=== PATIENT | female | born 1995 | race Caucasian/White ===

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

== ENCOUNTER 2017-05-25 15:29 | Emergency (ER) | payer BC ==
[~2017-05-25] VITALS: Ht 162.6 cm; Wt 68.6 kg
[2017-05-25 15:47] VITALS: TEMP 36.6; Ht 162.6 cm; Wt 68.6 kg
[2017-05-25 16:28] LABS: URINE APPEARANCE CLEAR (CLEAR); URINE BILIRUBIN NEG (NEG); URINE COLOR YELLOW; URINE NITRITE NEG (NEG); URINE PH 7.5 (4.5-7.5); URINE SPECIFIC GRAVITY 1.017 (1.000-1.030); UROBILINOGEN NEG (NEG); ZZUR CULT IF INDIC CLEAN CATCH NO
[2017-05-25 16:43] LABS: MANUAL MICROSCOPIC REQUIRED? NO; REVIEW REQ? NO
--- NOTE | 2017-05-25 16:48 | DIAGNOSTIC IMAGING REPORT ---
CHEST ONE VIEW PORTABLE CLINICAL HISTORY: Altered mental status. Weakness. COMPARISON STUDY: 04/23/2016 FINDINGS: The cardiac and mediastinal contours are normal. There is no evidence of focal pulmonary consolidation. There is no evidence of failure. No pleural effusions are visualized.[ IMPRESSION: No active disease in the chest. Electronically signed by: Rey Coyle M.D. 05/25/2017 4:47 PM Dictated Date/Time: 05/25/2017 4:44 PM
[2017-05-25] MEDS ORDERED: VENL150C56 PO (17:01)
[2017-05-25] MEDS ORDERED: CLON0.5T3 PO (17:01)
[2017-05-25] MEDS ORDERED: EFF/375 PO (17:01)
[2017-05-25 17:06] LABS: BASO % 0.3 %; BASO ABS # 0.02 K/uL (0-0.2); COMPLETE YES; HEMATOCRIT 42.2 % (37-47); IG% 0.1 %; LYMPH % 39.4 %; LYMPH ABS # 2.94 K/uL (1.2-3.4); MEAN CELL VOLUME 84.2 fL (80-100); MEAN CORPUSCULAR HEMOGLOBIN 27.3 pg (25-34); MEAN CORPUSCULAR HGB CONC 32.5 g/dl (32-36); MEAN PLATELET VOLUME 9.3 fL (7.4-10.4); NEUT % 53.2 %; PLATELET COUNT 214 K/uL (130-400); RED BLOOD COUNT 5.01 M/uL (4.2-5.4); WHITE BLOOD COUNT 7.46 K/uL (4.8-10.8)
[2017-05-25 17:07] LABS: PREG INTERNAL NEGATIVE QC NEG CLEAR BACKGROUND; PREG INTERNAL POSITIVE QC POS CONTROL LINE
[2017-05-25 17:10] LABS: BENZODIAZEPINE, URINE NEG (NEG); COCAINE,URINE NEG (NEG); PHENCYCLIDINE, URINE NEG (NEG)
--- NOTE | 2017-05-25 17:16 | DIAGNOSTIC IMAGING REPORT ---
CT SCAN OF THE BRAIN WITHOUT IV CONTRAST CLINICAL HISTORY: Headache and lethargy of 3 weeks' duration. COMPARISON STUDY: No priors. TECHNIQUE: Unenhanced axial CT scan of the brain is performed from the vertex to the skull base. A dose lowering technique was utilized adhering to the principles of ALARA. CT DOSE: 537.48 mGy.cm FINDINGS: Brain parenchyma: The brain parenchyma is normal in appearance. There is no hemorrhage, mass effect, or evidence of acute territorial ischemia by CT criteria. Goodman-white matter is preserved. No extra-axial fluid collection is seen. Ventricles, sulci, cisterns: Normal in configuration. Intracranial vasculature: The visualized intracranial vasculature at the skull base is normal in appearance. Calvarium: Unremarkable. Sinuses and mastoids: The visualized paranasal sinuses are clear. The mastoid air cells are well pneumatized. Orbits: The bony orbits are grossly intact. IMPRESSION: No acute intracranial abnormality. Electronically signed by: Talha Leyva M.D. 05/25/2017 5:15 PM Dictated Date/Time: 05/25/2017 5:14 PM
[2017-05-25 17:23] LABS: ALT/SGPT 18 U/L (12-78); BLOOD UREA NITROGEN 10 mg/dl (7-18); BUN/CREATININE RATIO 14.1 (10-20); CALCIUM 8.6 mg/dl (8.5-10.1); CARBON DIOXIDE 26 mmol/L (21-32); CHLORIDE 108 mmol/L (98-107); CREATININE 0.73 mg/dl (0.60-1.20); GLUCOSE 82 mg/dl (70-99); MAGNESIUM 1.9 mg/dl (1.8-2.4); POTASSIUM 3.7 mmol/L (3.5-5.1); SODIUM 140 mmol/L (136-145)
[2017-05-25 17:34] LABS: ALKALINE PHOSPHATASE 64 U/L (45-117); AST/SGOT 17 U/L (15-37)
--- NOTE | 2017-05-25 18:52 | EMERGENCY ROOM VISIT NOTE ---
History Report prepared by Nehal: Clinton Thomas Under the Supervision of: Dr. Talha Parham M.D. First contact with patient: 16:01 Chief Complaint: LETHARGIC Stated Complaint: SLEEPING ALL DAY, TIRED Nursing Triage Summary: pt reports I feel tired all the time , I will sleep all day and am missing my classes. I have a hx of depression I am taking my meds pt denies SI or HI . pt reports has had a AIKEN everyday for the last 3 weeks. mother want pt pt be " checked out" History of Present Illness The patient is a 21 year old female who presents to the Emergency Room with complaints of constant lethargy that began three weeks ago. The patient states that she has been sleeping frequently lately and missing her classes. She reports she usually gets 8 hours of sleep and is fine for the day. She states that lately, she has been lethargic, which is not usual for her. The patient reports that she has been getting enough sleep at night and has been taking naps after classes that would last for 3 hours. She states that today she did not get up until 1500 and missed all of her classes. She reports that she has been experiencing migraines at least once a day. The patient states that she thought the headaches may be due to her not wearing her prescribed glasses or contact lenses. She reports that she tried to use her glasses every day recently , but denies any relief of her headache. The patient admits to a history of depression, which she takes medication for. She reports that she has been on this medication since March and takes it at night to help her sleep. She admits that she has also been taking control pills daily. The patient reports that she has been eating and drinking normally, but admits her weight has been fluctuating. She denies any fever, sore throat, cough, vomiting, , urinary symptoms, having this issue in the past, a history of diabetes or thyroid problems, drug or alcohol use, suicidal ideation, and homicidal ideation. Source of History: patient Onset: 3 weeks ago Position: other (global) Quality: other (global) Timing: constant Associated Symptoms: + headache, No fevers, No sorethroat, No cough, No vomiting, No urinary symptoms Review of Systems See HPI for pertinent positives & negatives. A total of 10 systems reviewed and were otherwise negative. Past Medical & Surgical Medical Problems: (1) Asthma (2) Bronchitis Family History Patient reports no known family medical history. Social History Smoking Status: Never Smoker Alcohol Use: occasionally Drug Use: none Marital Status: single Housing Status: lives with roommate Occupation Status: [employer] student Current/Historical Medications Scheduled Control Pills ( Control Pills), 1 TAB PO DAILY Venlafaxine Hcl (Effexor), 37.5 MG PO DAILY Venlafaxine Hcl (Effexor Extended Rel), 150 MG PO DAILY Scheduled PRN Clonazepam (Klonopin), 0.5 MG PO PRN PRN for Anxiety Allergies Coded Allergies: Penicillins (Verified Allergy, Unknown, RASH, 05/25/17) Physical Exam Vital Signs Date Time Temp Pulse Resp B/P (MAP) Pulse Ox O2 Delivery O2 Flow Rate FiO2 05/25/17 21:10 74 20 130/80 99 Room Air 05/25/17 19:29 82 18 143/83 99 Room Air 05/25/17 17:42 84 16 126/77 100 Room Air 05/25/17 15:47 36.6 98 20 129/83 99 Room Air Physical Exam GENERAL: Patient is in no acute distress. HEENT: No acute trauma, normocephalic atraumatic, mucous membranes moist, no nasal congestion, no scleral icterus. No throat erythema or exudate. NECK: No stridor, no adenopathy, no meningismus, trachea is midline. LUNGS: Clear to auscultation bilaterally, no wheeze, no rhonchi, breath sounds equal. HEART: Without murmurs gallops or rubs, regular rate and rhythm. ABDOMEN: Soft, nontender, bowel sounds positive, no hernias, no peritonitis. EXTREMITIES: No cyanosis or edema, full range of motion of all the joints without pain or difficulty, no signs for acute trauma. NEUROLOGIC: Oriented x 3, no acute motor or sensory deficits, no focal weakness. SKIN: No rash, no jaundice, no diaphoresis. Psyc: Denies SI, voluntary, cooperative. Medical Decision & Procedures ER Provider Diagnostic Interpretation: Radiology results as stated below per my review and radiologist interpretation: CHEST ONE VIEW PORTABLE CLINICAL HISTORY: Altered mental status. Weakness. COMPARISON STUDY: 04/23/2016 FINDINGS: The cardiac and mediastinal contours are normal. There is no evidence of focal pulmonary consolidation. There is no evidence of failure. No pleural effusions are visualized.[ IMPRESSION: No active disease in the chest. Electronically signed by: Rey Coyle M.D. 05/25/2017 4:47 PM Dictated Date/Time: 05/25/2017 4:[address] SCAN OF THE BRAIN WITHOUT IV CONTRAST CLINICAL HISTORY: Headache and lethargy of 3 weeks' duration. COMPARISON STUDY: No priors. TECHNIQUE: Unenhanced axial CT scan of the brain is performed from the vertex to the skull base. A dose lowering technique was utilized adhering to the principles of ALARA. CT DOSE: 537.48 mGy.cm FINDINGS: Brain parenchyma: The brain parenchyma is normal in appearance. There is no hemorrhage, mass effect, or evidence of acute territorial ischemia by CT criteria. Goodman-white matter is preserved. No extra-axial fluid collection is seen. Ventricles, sulci, cisterns: Normal in configuration. Intracranial vasculature: The visualized intracranial vasculature at the skull base is normal in appearance. Calvarium: Unremarkable. Sinuses and mastoids: The visualized paranasal sinuses are clear. The mastoid air cells are well pneumatized. Orbits: The bony orbits are grossly intact. IMPRESSION: No acute intracranial abnormality. Electronically signed by: Talha Leyva M.D. 05/25/2017 5:15 PM Dictated Date/Time: 05/25/2017 5:14 PM Laboratory Results 05/25/17 16:30 Red Blood Count 5.01, Mean Corpuscular Volume 84.2, Mean Corpuscular Hemoglobin 27.3, Mean Corpuscular Hemoglobin Concent 32.5, Mean Platelet Volume 9.3, Neutrophils (%) (Auto) 53.2, Lymphocytes (%) (Auto) 39.4, Monocytes (%) (Auto) 5.0, Eosinophils (%) (Auto) 2.0, Basophils (%) (Auto) 0.3, Neutrophils # (Auto) 3.97, Lymphocytes # (Auto) 2.94, Monocytes # (Auto) 0.37, Eosinophils # (Auto) 0.15, Basophils # (Auto) 0.02 05/25/17 16:30 Test 05/25/17 15:59 05/25/17 16:30 Urine Color YELLOW Urine Appearance CLEAR (CLEAR) Urine pH 7.5 (4.5-7.5) Urine Specific [place] 1.017 (1.000-1.030) Urine Protein NEG (NEG) Urine Glucose (UA) NEG (NEG) Urine Ketones NEG (NEG) Urine Occult Blood NEG (NEG) Urine Nitrite NEG (NEG) Urine Bilirubin NEG (NEG) Urine Urobilinogen NEG (NEG) Urine Leukocyte Esterase NEG (NEG) Urine Opiates Screen NEG (NEG) Urine Methadone, Qualitative NEG (NEG) Urine Barbiturates NEG (NEG) Urine Phencyclidine (PCP) Level NEG (NEG) Ur Amphetamine/Methamphetamine NEG (NEG) MDMA (Ecstasy) Screen NEG (NEG) Urine Benzodiazepines Screen NEG (NEG) Urine Cocaine Metabolite NEG (NEG) Urine Marijuana (THC) POS (NEG) White Blood Count 7.46 K/uL (4.8-10.8) Red Blood Count 5.01 M/uL (4.2-5.4) Hemoglobin 13.7 g/dL (12.0-16.0) Hematocrit 42.2 % (37-47) Mean Corpuscular Volume 84.2 fL (80-100) Mean Corpuscular Hemoglobin 27.3 pg (25-34) Mean Corpuscular Hemoglobin Concent 32.5 g/dl (32-36) Platelet Count 214 K/uL (130-400) Mean Platelet Volume 9.3 fL (7.4-10.4) Neutrophils (%) (Auto) 53.2 % Lymphocytes (%) (Auto) 39.4 % Monocytes (%) (Auto) 5.0 % Eosinophils (%) (Auto) 2.0 % Basophils (%) (Auto) 0.3 % Neutrophils # (Auto) 3.97 K/uL (1.4-6.5) Lymphocytes # (Auto) 2.94 K/uL (1.2-3.4) Monocytes # (Auto) 0.37 K/uL (0.11-0.59) Eosinophils # (Auto) 0.15 K/uL (0-0.5) Basophils # (Auto) 0.02 K/uL (0-0.2) RDW Standard Deviation 45.6 fL (36.4-46.3) RDW Coefficient of Variation 14.7 % (11.5-14.5) Immature Granulocyte % (Auto) 0.1 % Immature Granulocyte # (Auto) 0.01 K/uL (0.00-0.02) Anion Gap 6.0 mmol/L (3-11) Est Creatinine Clear Calc Drug Dose 118.0 ml/min Estimated GFR () 138.4 Estimated GFR (Non- 119.4 BUN/Creatinine Ratio 14.1 (10-20) Calcium Level 8.6 mg/dl (8.5-10.1) Magnesium Level 1.9 mg/dl (1.8-2.4) Total Bilirubin 0.6 mg/dl (0.2-1) Aspartate Amino Transf (AST/SGOT) 17 U/L (15-37) Alanine Aminotransferase (ALT/SGPT) 18 U/L (12-78) Alkaline Phosphatase 64 U/L (45-117) Ammonia 16.2 umol/L (11-32) Total Creatine Kinase 83 U/L (26-192) Troponin I < 0.015 ng/ml (0-0.045) Total Protein 7.0 gm/dl (6.4-8.2) Albumin 3.5 gm/dl (3.4-5.0) Globulin 3.5 gm/dl (2.5-4.0) Albumin/Globulin Ratio 1.0 (0.9-2) Thyroid Stimulating Hormone (TSH) 3.000 uIu/ml (0.300-4.500) Human Chorionic Gonadotropin, Qual NEG (NEG) Monoscreen NEG (NEG) Laboratory results reviewed by me. ECG Indication: other (lethargy) Rate (beats per minute): 75 Rhythm: sinus with SA Findings: no acute ischemic change, no ectopy ED Course 1602: The patient was evaluated in room B11B. A complete history and physical exam was performed. 0: I discussed the patient's case with the case hardener. The case hardener talked to the patient and she reports that she is profoundly depressed and would like to come into the hospital for treatment. 1923: I reevaluated the patient and she is doing fine. 2104: Reevaluated the patient. She now wishes to be discharged home. Discussed results and discharge instructions: She verbalized understanding and agreement. The patient is ready for discharge. Medical Decision The patient is a 21 year old female who presents to the ED with complaints of constant lethargy starting three weeks ago. Differential diagnoses considered include depression, thyroid disorder, viral illness, electrolyte imbalance, UTI , , anemia, intracranial mass or bleed. There is no leukocytosis or concerning anemia. No significant electrolyte abnormality, kidney failure, hepatitis. testing is negative. Monospot testing is negative. Ammonia is not elevated. Urinalysis does not show infection. Urine tox shows marijuana only. The patient appears to be in a euthyroid state. Chest x-ray does not show pneumonia or CHF. EKG shows a sinus rhythm, no acute ischemia. Cardiac enzyme testing 1 does not suggest acute cardiac injury. Brain CT shows no acute bleed or mass effect. On exam, the patient had no focal neurologic deficits. She was awake and alert. She does not appear toxic. She was not febrile. The patient's medical workup is unrevealing. I had her seen by the psychiatry team. They spent a significant amount of time talking with the patient and talking with her mother. The patient initially thought maybe she would stay in the hospital for depression but then changed her mind. She denied being suicidal or homicidal. She felt safe with discharge back to school. The patient's mother was comfortable with discharge. Outpatient follow-up is being arranged. The patient was encouraged to return here for any suicidal ideation or worsening symptoms. She was discharged home. I do think her depression is responsible for her fatigue and the presentation today. Medication Reconcilliation Current Medication List: was personally reviewed by me Blood Pressure Screening Patient's blood pressure: Normal blood pressure Impression Primary Impression: Fatigue Additional Impression: Depression Scribe Attestation The scribe's documentation has been prepared under my direction and personally reviewed by me in its entirety. I confirm that the note above accurately reflects all work, treatment, procedures, and medical decision making performed by me. Departure Information Dispostion Home / Self-Care Referrals No Doctor, Assigned (PCP) Forms HOME CARE DOCUMENTATION FORM, IMPORTANT VISIT INFORMATION, WORK / SCHOOL INSTRUCTIONS Patient Instructions My [facility] Additional Instructions return if feeling worse or if feeling suicidal try taking your depression med in the morning follow as an outpatient as suggested all lab testing and imaging was ok today Problem Qualifiers
[2017-05-25 21:10] VITALS: BP 130/80; PULSE 74; O2SAT 99
== END 2017-05-25 21:17 | disposition home or self-care (01) ==
LOC: C.EDB 15:30 → C.EDA 21:17
DX: R53.83 Other fatigue (principal); F32.9 Major depressive disorder, single episode, unspecified; J45.909 Unspecified asthma, uncomplicated; Z88.0 Allergy status to penicillin

== ENCOUNTER 2017-05-26 22:44 | Inpatient (IN) | payer BC, OTHER ==
[~2017-05-26] VITALS: Ht 162.6 cm; Wt 66.6 kg
[~2017-05-26 22:44] MED LIST changes: +CLON0.5T3 PO; +EFF/375 PO; +VENL150C56 PO
[2017-05-27] MEDS ORDERED: NURSING VERBAL MED ORDER ONE (02:30)
[2017-05-27 02:36] VITALS: O2SAT 98
[2017-05-27 02:39] LABS: BENZODIAZEPINE, URINE NEG (NEG); COCAINE,URINE NEG (NEG); PHENCYCLIDINE, URINE NEG (NEG)
[2017-05-27] MEDS ORDERED: ALUMINUM/MAGNESIUM SUSP 30 ML UDC PO PRN (02:45)
[2017-05-27] MEDS ORDERED: MAGNESIUM HYDROXIDE SUSP 30 ML UDC PO PRN (02:45)
[2017-05-27] MEDS ORDERED: ACETAMINOPHEN 325 MG TAB PO PRN (02:45)
[2017-05-27] MEDS ORDERED: SODIUM CHLORIDE 0.65% NA SOLN 45 ML (OCEAN) PRN (02:45)
[2017-05-27] MEDS ORDERED: BISMUTH SUBSALICYLATE PER ML OMNICELL CHARGE PO PRN (02:45)
[2017-05-27] MEDS: hydrOXYzine HCL 25 MG TAB PO PRN (03:11)
[2017-05-27 05:17] VITALS: BP 126/72; TEMP 36.8; Ht 162.6 cm; Wt 66.6 kg
[2017-05-27] MEDS ORDERED: EFFSR375 PO (06:49)
[2017-05-27 07:12] VITALS: BP 119/75; PULSE 91; TEMP 37.1
--- NOTE | 2017-05-27 07:40 | EMERGENCY ROOM VISIT NOTE ---
History Report prepared by Nehal: Ailin Oleary Under the Supervision of: Dr. Gini Nunez D.O. First contact with patient: 23:04 Chief Complaint: MENTAL HEALTH EVALUATION Stated Complaint: DEPRESSION History of Present Illness The patient is a 21 year old female who presents to the Emergency Room for a mental health evaluation. The patient states that she was here yesterday for a mental health evaluation. She reports that she didn't want to stay in patient at the time. She states that today she tried to go through her normal day, but struggled. She reports that she went to some of her classes this morning, but slept through some as well. She states that she slept until 5 today and has barley eaten or drank anything today. She states that she forced herself to eat a popsicle and vomited. She reports that she tried to eat rice and it stayed down. The patient reports that she has only drank one bottle of Gatorade this morning and had a little water throughout the day. She reports that she came back because she wants to get better. The patient complains of lack of motivation. The patient notes that she sees [facility] regularly and that she has never been an inpatient before. She denies any known health problems, drug use, alcohol use, wanting to hurt herself, wanting to hurt others, and missing her depression medication. She notes that she has had suicidal thoughts in the past , but nothing recently. She notes that her LNMP was a week ago. Source of History: patient Onset: yesterday Position: other (global) Quality: other (global) Timing: other (episode) Associated Symptoms: + vomiting Note: The patient complains of lack of motivation. the patient denies wanting to hurt herself, wanting to hurt others, and missing her depression medication. Review of Systems See HPI for pertinent positives & negatives. A total of 10 systems reviewed and were otherwise negative. Past Medical & Surgical Medical Problems: (1) Asthma (2) Bronchitis Family History Patient reports no known family medical history. Social History Smoking Status: Never Smoker Alcohol Use: occasionally Drug Use: none Marital Status: single Housing Status: lives with roommate Occupation Status: [employer] student Current/Historical Medications Scheduled Control Pills ( Control Pills), 1 TAB PO DAILY Venlafaxine HCl (Venlafaxine HCl ER), 37.5 MG PO DAILY Venlafaxine Hcl (Effexor Extended Rel), 150 MG PO DAILY Scheduled PRN Clonazepam (Klonopin), 0.5 MG PO PRN PRN for Anxiety Allergies Coded Allergies: Penicillins (Verified Allergy, Unknown, RASH, 05/25/17) Physical Exam Vital Signs Date Time Temp Pulse Resp B/P (MAP) Pulse Ox O2 Delivery O2 Flow Rate FiO2 05/26/17 22:47 36.8 79 20 126/85 97 Room Air Physical Exam HEENT: Head - normocephalic and atraumatic Pupils are equal, round, and reactive to light. Extraocular eye muscles are intact, and sclera are anicteric. Nose - moist nasal mucosa without discharge. Mouth - moist buccal mucosa. Oropharynx is nonerythematous and there is no tonsillar exudate or edema noted. Neck: Supple; no JVD, nuchal rigidity, cervical lymphadenopathy, or auscultated bruits. Heart: Regular rate and rhythm. There is a normal S1 and S2 with no murmurs, clicks, or gallops appreciated. Lungs: Clear to auscultation bilaterally with no wheezes, rales, or rhonchi. Abdomen: Soft, completely nontender, nondistended, with good bowel sounds. There are no palpable pulsatile masses or hepatosplenomegaly. There is no guarding, rigidity, or rebound noted. Extremities: No evidence of cyanosis, clubbing, or edema. There are easily palpable peripheral pulses. Skin: warm and dry with good turgor and no rashes. Psych: Extremely flat affect. Appears depressed. Denies suicidal or homicidal ideations. Medical Decision & Procedures Laboratory Results Test 05/26/17 23:00 Urine Opiates Screen NEG (NEG) Urine Methadone, Qualitative NEG (NEG) Urine Barbiturates NEG (NEG) Urine Phencyclidine (PCP) Level NEG (NEG) Ur Amphetamine/Methamphetamine NEG (NEG) MDMA (Ecstasy) Screen NEG (NEG) Urine Benzodiazepines Screen NEG (NEG) Urine Cocaine Metabolite NEG (NEG) Urine Marijuana (THC) POS (NEG) Laboratory results per my review. ED Course 2311: Past medical records reviewed. The patient was evaluated in room A7. A complete history and physical exam was performed. I discussed the case with staff from [facility]. He had evaluated the patient yesterday was familiar with her case. The patient is willing to sign herself in voluntarily for inpatient psychiatric care. We did obtain a urine specimen to do a drug screen. This was positive for marijuana. Medical Decision Differential diagnoses include mood disorder, depression, thought disorder, suicidal ideation. LABS: Urine tox screen positive for THC. This is a 21-year-old female patient with a history of depression his had worsening symptoms and is requesting inpatient psychiatric care. Medication Reconcilliation Current Medication List: was personally reviewed by me Blood Pressure Screening Patient's blood pressure: Normal blood pressure Blood pressure disposition: Did not require urgent referral Impression Primary Impression: Depression Scribe Attestation The scribe's documentation has been prepared under my direction and personally reviewed by me in its entirety. I confirm that the note above accurately reflects all work, treatment, procedures, and medical decision making performed by me. Departure Information Dispostion Mental Health Acute Care Referrals No Doctor, Assigned (PCP) Patient Instructions My [facility] Problem Qualifiers Primary Impression: Depression Depression Type: major depressive disorder Major depression recurrence: recurrent Active/Remission status: currently active Major depression episode severity: moderate Qualified Codes: F33.1 - Major depressive disorder, recurrent, moderate
[2017-05-27] MEDS ORDERED: VENLAFAXINE HCL XR 37.5 MG CAPXR PO SCH (09:00)
[2017-05-27] MEDS ORDERED: VENLAFAXINE HCL XR 75 MG CAPXR PO ONE (13:07)
--- NOTE | 2017-05-27 13:09 | Psychiatric History & Physical ---
History Date of Service May 27, 2017. Identifying Data Trena Rowe is a 21-year-old [employer] student who presented to the emergency department 2 nights in a row with reports of headache, extreme fatigue and inability to function. She is admitted to our unit voluntarily. Information is gathered from the patient and considered to be reliable. Chief Complaint Depression and anxiety History of Present Illness The patient is a 21-year-old woman attending [employer]. She reports that she has been depressed since the age of 13 or 14 and has also had chronic anxiety. She remembers sitting in her room listening to music and crying as a child. She was diagnosed with depression until she saw Lexus Bazanley at [facility] in December of this year. She was started on Remeron which made her hungry and so this was discontinued in favor of a trial of Lexapro. She experienced an increase in suicidal ideation and so this was discontinued in favor of a trial of Effexor which has been increasing in dose since March. When she got to about 150 mg she noticed that she was extremely tired and this is continued. She is now sleeping any time she is not in class including 11-12 hours at night. It is interfering with her ability to participate in her schooling and her extracurricular activities. She denies having acute suicidal ideation but over the years has had passive thoughts of when she has been under stress. She is currently a [employer] major and is also participating in [employer]. She also has one class that involves setting up a community activity and hers is planned to be executed next week. All of this has placed an additional level of stress on her. Over the last 3 weeks her depression and anxiety have been worsening although she has not been able to see her providers having had to cancel twice. Today the patient continues to say that her mood is depressed and anxious. She denies acute suicidal ideation. She indicates her focus and concentration are okay but finds it tiring by the end of the day to focus on her schoolwork. As I said she sleeps to excess. Her appetite is been down and has been having some nausea. She is an anxious person dating back at least to high school. She reports racing anxious thoughts with panic attacks that include symptoms of shortness of breath and occur when she is in crowds. She generally avoids parties or anywhere that there are large numbers of people. This has only been this semester and in the setting of her depression. She denies clear OCD symptoms although does have some traits in which she cleans a lot anxious and has to have her bed clothes and sheets in a certain manner. She denies any symptoms that would be congruent with a bipolar disorder. Past Psychiatric History Current OP Treatment: psychiatrist (Lexus SALAZAR), therapist (Cesar at [facility]) Prior OP Treatment: no prior treatment Prior Psych Hospitalizations: none Access to a Gun: No Suicide Attempts: No Past Medication Trials 1. Lexapro-increase suicidal ideation 2. Remeron increase in appetite 3. BuSpar-not helpful- Past Medical/Surgical History History of Concussion/Seizure: No Allergies Allergies: Coded Allergies: Penicillins (Verified Allergy, Unknown, RASH, 05/25/17) Home Medications Scheduled Control Pills ( Control Pills), 1 TAB PO DAILY Venlafaxine HCl (Venlafaxine HCl ER), 37.5 MG PO DAILY Venlafaxine Hcl (Effexor Extended Rel), 150 MG PO DAILY Scheduled PRN Clonazepam (Klonopin), 0.5 MG PO PRN PRN for Anxiety Family History Patient reports no known family medical history. History of Suicide: No History of Substance Abuse: Yes (father) Psychiatric History: No Alcohol Use Alcohol Use In Past 12 Months: No AUDIT Total Score: 1 Smoking Use Smoking Status: Never Smoker Substance History Smokes marijuana about 1 time per week, generally for headaches Personal History Lives in: in an apartment in [place], multiple roommates Childhood: Raised by mother and father until they . She then went to live with mother. She has 1 younger sister. Education: started college (his [employer] major) Relationship History: other (boyfriend of 3 months) Children: none Spiritual Affiliation: none Legal History: none Psychological Trauma History: Denies Hx Traumatic Event Review of Systems Constitutional: malaise Eyes: denies: no symptoms, as stated in HPI, eye pain, tearing, itching, redness, discharge, double vision, visual changes, blurred vision, photophobia, other ENT: denies: no symptoms reported, see HPI, ear pain, ear discharge, loss of hearing, tinnitus, nasal pain, nasal congestion, rhinorrhea, epistaxis, sore throat, stidor, throat swelling, mouth pain, mouth swelling, dental pain, gum swelling, other Cardiovascular: reports: palpitations Respiratory: reports: cough, short of breath (with anxiety) Gastrointestinal: denies no symptoms reported, denies see HPI, denies abdominal pain, denies constipation, denies diarrhea, denies nausea, denies vomiting, denies other Genitourinary - Female: denies: no symptoms, see HPI, rash, amenorrhea, dysmenorrhea, menorrhagia, metrorrhagia, , vaginal bleeding, vaginal itching, vaginal discharge, vulvadynia, other Musculoskeletal: denies no symptoms reported, denies see HPI, denies back pain , denies gout, denies joint pain, denies joint swelling, denies muscle pain, denies muscle stiffness, denies neck pain, denies other Integumentary: denies no symptoms reported, denies see HPI, denies change in color, denies change in hair/nails, denies dryness, denies lesions, denies lumps , denies rash, denies other Neurologic: reports: headache Endocrine: denies: no symptoms, as stated in HPI, cold intolerance, heat intolerance, hair changes, goiter, polydipsia, polyuria, skin changes, other Hematologic / Lymphatic: denies: no symptoms, as stated in HPI, abnormal clotting, adenopathy, anemia, easy bleeding, easy bruising, gums bleeding, petechiae, other Examination Physical Examination Exam performed by Dr. Nunez in the emergency department last evening he has been reviewed and accepted as medical clearance for our unit. Vital Signs Vital Signs Past 12 Hours Date Time Temp Pulse Resp B/P (MAP) Pulse Ox O2 Delivery O2 Flow Rate FiO2 05/27/17 07:12 37.1 91 16 119/75 05/27/17 05:17 36.8 20 126/72 05/27/17 02:36 78 20 126/72 98 Laboratory Results Last 24 Hours Test 05/26/17 23:00 Urine Opiates Screen NEG Urine Methadone, Qualitative NEG Urine Barbiturates NEG Urine Phencyclidine (PCP) Level NEG Ur Amphetamine/Methamphetamine NEG MDMA (Ecstasy) Screen NEG Urine Benzodiazepines Screen NEG Urine Cocaine Metabolite NEG Urine Marijuana (THC) POS Mental Examination During interview pt is: alert and oriented, cooperative Appearance: appropriately dressed, appropriately groomed Eye contact is: good Motor behavior is: steady gait & station, no abnormal motor movements Speech: normal in rate, rhythm & volume Affect: flat Mood is: depressed, anxious Thought process: goal directed Thought content: reality based without delusions Suicidal thought are: present (passive) Homicidal thoughts are: denied Hallucinations: denies auditory, denies visual Cognition: memory grossly intact, attention grossly intact Intelligence estimated to be: average Insight: limited Judgement: limited Impression / Recommendations Impression 21-year-old [employer] student, presented to our ED 2 nights in a row feeling that she could no longer function with the degree of fatigue she was experiencing. She correlates this to an increase in dosage of Effexor to 187.5 mg. She is also under a great deal of stress at school and its difficult to clearly say whether her fatigue is a side effect to medications or symptom of her depression. Nonetheless, she is lost confidence in the Effexor and so we will taper her down to 150 today, 75 mg tomorrow and if no discontinuation symptoms, further reduced to 137.5 mg. At the same time we will start Zoloft 25 mg today increasing to 50 mg tomorrow. Risks, benefits and alternatives were reviewed and accepted including review of black box warnings. We will coordinate with her outpatient providers. She would like to continue in school at this point and so will be in contact with the office of student services as needed. At this time, the patient requires inpatient mental health treatment due to an inability to function outside of a structured environment. Inventory Assets Strengths: Intelligence, willingness to engage in treatment Needs: To avoid substances Risk Factors Assessment : Yes /single/: Yes Higher / Fall in social status: No Access to guns: No Health problems: No Mental Health Diagnoses: Yes Substance use disorders: No Previous attempt: No Previous psychiatric stay: No Hopelessness: No Smoker: No Protective Factors Assessment : No Responsible for young children: No Employed: No Stable relationships: Yes Supportive family: Yes Good rapport with provider: Yes Recommendations (1) Major depressive disorder, recurrent severe without psychotic features 05/27 - Reduce Effexor to 150 mg today and 75 mg tomorrow. If no discontinuation symptoms will continue to taper - Start Zoloft 25 mg today increasing to 50 mg tomorrow - Family meeting with mother who is here from [place] - Every 15 minute checks for safety - Encourage participation in group and individual counseling - Assist the patient to learn and utilize healthy coping strategies - Encourage the patient to be out of bed during the day in order to establish good sleep hygiene - Obtain outpatient records from and coordinate future care with outpatient providers (2) JOANA (generalized anxiety disorder) 05/27 - - Meds as above - Will use Vistaril when necessary for anxiety - Assist the patient to explore concepts of mindfulness, deep breathing and relaxation Has been reviewed with Dr. Nani Dwyer CPT Code Initial Hospital Care: [id number]
[2017-05-27] MEDS ORDERED: SERTRALINE HCL 50 MG TAB PO ONE (13:30)
[2017-05-27] MEDS ORDERED: VENLAFAXINE PO ONE ×2 (13:30)
[2017-05-27] MEDS: [UNRECOGNIZED DRUG - OTHER] SCH (15:44)
[2017-05-28 07:17] VITALS: BP 122/78; PULSE 93; PULSE 97; TEMP 36.8
[2017-05-28] MEDS: [UNRECOGNIZED DRUG - OTHER] SCH ×3 (08:00→16:00)
[2017-05-28] MEDS ORDERED: SERTRALINE HCL 50 MG TAB PO SCH (09:00)
[2017-05-28] MEDS: VENLAFAXINE HCL XR 75 MG CAPXR PO SCH (09:42)
[2017-05-28] MEDS: hydrOXYzine HCL 25 MG TAB PO PRN ×2 (10:59→21:49)
--- NOTE | 2017-05-28 11:53 | Psychiatric Progress Notes ---
Progress Note Date of Service May 28, 2017. Interval History Trena Rwoe is a 21-year-old [employer] student who presented to the emergency department 2 nights in a row with reports of headache, extreme fatigue and inability to function. She is admitted to our unit voluntarily. Information is gathered from the patient and considered to be reliable. Chief Complaint "Better". Subjective Patient was seen & assessed interval progress reviewed with Nursing. Staff report she has been participating in groups, is quiet but appropriate in her interactions with others, is eating well, and took a nap yesterday evening. She had a meeting with her mother who came in from [place] yesterday. Her mother had complaints about her treatment at [facility], the patient would like to continue to receive services there. The option for medical withdrawal was discussed, but the patient is determined to remain in school. Today, the patient states that she is feeling a bit better, and that she has been less tired. Although she did take a nap yesterday, she notes it was shorter than her had been prior to hospitalization, and she was able to get back up for dinner. She thinks her mood is slightly better, and she thinks it is helping to be here receiving treatment. She feels more hopeful about the future and that the medication changes will be helpful. She states that the medicines she' s tried in the past either helped for her depression or for her anxiety, but she hopes this antidepressant will help for both. She continues to have anxiety , which she states is usually triggered by being around people and talking to others, but has been able to challenge this by participating in groups here. She feels supported by staff and peers, and feels safe in the hospital. Appetite remains poor, but she is eating some of each meal with staff encouragement. Sleep Information Total Hours of Sleep: 6.50 Meal Information Percent of Breakfast Consumed: 50 Percent of Lunch Consumed: 30 Percent of Dinner Consumed: 100 Mental Status Exam During interview pt is: alert and oriented, cooperative Appearance: appropriately dressed, disheveled Eye contact is: good Motor behavior is: steady gait & station, no abnormal motor movements Speech: normal in rate, rhythm & volume Affect: depressed, constricted Mood is: depressed, anxious Thought process: goal directed Thought content: reality based without delusions Suicidal thought are: denied Homicidal thoughts are: denied Hallucinations: denies auditory, denies visual Cognition: memory grossly intact, attention grossly intact Intelligence estimated to be: average Insight: limited Judgement: limited Impression 21-year-old [employer] student who was admitted voluntarily after presenting to our ED 2 nights in a row feeling that she could no longer function with the degree of depression and fatigue she was experiencing. She correlates this with an increase in dosage of Effexor to 187.5 mg. She is also under a great deal of stress at school and its difficult to tell whether her fatigue is a side effect to medications or symptom of her depression. Nonetheless, she has lost confidence in the Effexor, so we are tapering her off of that, while starting a trial of sertraline. She would like to continue in school at this point, so we will coordinate with the office of student services and her providers at [facility]. At this time, the patient requires inpatient mental health treatment due to an inability to function outside of a structured environment. Plan (1) Major depressive disorder, recurrent severe without psychotic features 05/27 - Reduce Effexor to 150 mg today and 75 mg tomorrow. If no discontinuation symptoms will continue to taper - Start Zoloft 25 mg today increasing to 50 mg tomorrow - Family meeting with mother who is here from [place] - Every 15 minute checks for safety - Encourage participation in group and individual counseling - Assist the patient to learn and utilize healthy coping strategies - Encourage the patient to be out of bed during the day in order to establish good sleep hygiene - Obtain outpatient records from and coordinate future care with outpatient providers 05/28 - Continue venlafaxine XR taper, can decrease further in 2 days if tolerating well. - Continue sertraline which was increased to 50 mg today, and will increase again to 75 mg in 2 days as she is tolerating it well thus far. - Coordinate with [facility] and schedule follow-up appointments with her psychiatrist and therapist. - Continue participation in groups and therapy, and encouraged the patient to stay out of bed and active during the day to combat fatigue. - Encourage good by mouth intake (2) JOANA (generalized anxiety disorder) 05/27 - - Meds as above - Will use Vistaril when necessary for anxiety - Assist the patient to explore concepts of mindfulness, deep breathing and relaxation Discharge / Aftercare Planning Primary Care Physician: Name: Dr Aguilar Psychiatrist: Name: Lexus SALAZAR Therapist: Name: Sultan Noe DEJESUS Date of Appointment: May 28, 2017 Cover Inspector: Name: None Visit Code E&M Code: 63001 Inventory Assets Strengths: Intelligence, willingness to engage in treatment Needs: To avoid substances Risk Factors Assessment : Yes /single/: Yes Higher / Fall in social status: No Health problems: No Mental Health Diagnoses: Yes Substance use disorders: No Previous attempt: No Previous psychiatric stay: No Hopelessness: No Smoker: No Protective Factors Assessment : No Responsible for young children: No Employed: No Stable relationships: Yes Supportive family: Yes Good rapport with provider: Yes Data Vital Signs Last 24 Hrs: Date Time Temp Pulse Resp B/P (MAP) Pulse Ox O2 Delivery O2 Flow Rate FiO2 05/28/17 07:17 36.8 97 16 122/78 93 Meds Administered Last 24 Hrs: Meds Administered (Past 24Hrs) Medications (Trade) Dose Ordered Sig/Merline Route Start Time Stop Time Status Last Admin Dose Admin Hydroxyzine HCl (Vistaril Tab) 25 mg Q4H PRN PO 05/27/17 02:45 06/26/17 02:44 05/28/17 10:59 25 MG Venlafaxine HCl (effeXOR EXTENDED REL CAP) 37.5 mg DAILY PO 05/27/17 09:00 05/27/17 13:11 DC 05/27/17 10:13 37.5 MG Venlafaxine HCl (effeXOR EXTENDED REL CAP) 75 mg QAM PO 05/28/17 09:00 06/27/17 08:59 05/28/17 09:42 75 MG Sertraline HCl (Zoloft Tab) 50 mg QAM PO 05/28/17 09:00 06/27/17 08:59 05/28/17 09:43 50 MG Sertraline HCl (Zoloft Tab) 25 mg 1330 ONCE PO 05/27/17 13:30 05/27/17 13:46 DC 05/27/17 14:26 25 MG Venlafaxine HCl (effeXOR EXTENDED REL CAP) 112.5 mg 1330 ONCE PO 05/27/17 13:30 05/27/17 13:31 DC 05/27/17 14:26 112.5 MG
[2017-05-28] MEDS ORDERED: NAPROXEN 250 MG TAB PO PRN (12:00)
[2017-05-29 06:48] VITALS: BP 97/65; PULSE 80; PULSE 98; TEMP 36.7
[2017-05-29] MEDS: [UNRECOGNIZED DRUG - OTHER] SCH ×3 (08:00→15:35)
[2017-05-29] MEDS ORDERED: SERTRALINE HCL 50 MG TAB PO SCH (09:00)
[2017-05-29] MEDS: VENLAFAXINE HCL XR 75 MG CAPXR PO SCH (10:06)
[2017-05-29] MEDS: hydrOXYzine HCL 25 MG TAB PO PRN ×3 (12:27→21:53)
--- NOTE | 2017-05-29 13:21 | Psychiatric Progress Notes ---
Progress Note Date of Service May 29, 2017. Interval History Trena Rowe is a 21-year-old [employer] student who presented to the emergency department 2 nights in a row with reports of headache, extreme fatigue and inability to function. She is admitted to our unit voluntarily. Information is gathered from the patient and considered to be reliable. Chief Complaint "I think I feel back to normal.". Subjective Patient was seen & assessed interval progress reviewed with Treatment Team. The patient says that she slept well last night with the help of vistaril. She was a little tired upon awakening but once up has felt energized. She denies any discontinuation symptoms coming off of Effexor, or side effects to Zoloft. Her mood is good, and she thinks that she feels back to her baseline. She is having no SI, no fatigue, and feels she is close to feeling ready to return to school. Review of Systems Constitutional: No fever, No chills, No sweats, No weight loss, No weakness, No fatigue, No problem reported ENT: No hearing loss, No unusual epistaxis, No nasal symptoms, No sore throat, No tinnitus, No dental problems, No trouble swallowing, No problem reported Respiratory: No cough, No sputum, No wheezing, No shortness of breath, No dyspnea on exertion, No dyspnea at rest, No hemoptysis, No problem reported Cardiovascular: No chest pain, No orthopnea, No PND, No edema, No claudication , No palpitations, No problem reported Abdomen: No pain, No nausea, No vomiting, No diarrhea, No constipation, No GI bleeding, No problem reported Musculoskeletal: No joint pain, No muscle pain, No swelling, No calf pain, No problem reported Neurologic: No memory loss, No paralysis, No weakness, No numbness/tingling, No vertigo, No balance problems, No problem reported Psychiatric: No depression symptoms, No anhedonism, No anxiety, No insomnia, No substance abuse, No problem reported Integumentary: No rash, No itch, No new/changing skin lesions, No color change , No bleeding, No problem reported Sleep Information Total Hours of Sleep: 6.25 Meal Information Percent of Breakfast Consumed: 90 Percent of Lunch Consumed: 50 Percent of Dinner Consumed: 100 Mental Status Exam During interview pt is: alert and oriented, cooperative Appearance: appropriately dressed, disheveled Eye contact is: good Motor behavior is: steady gait & station, no abnormal motor movements Speech: normal in rate, rhythm & volume Affect: blunted Mood is: other ("I feel good.") Thought process: goal directed Thought content: reality based without delusions Suicidal thought are: denied Homicidal thoughts are: denied Hallucinations: denies auditory, denies visual Cognition: memory grossly intact, attention grossly intact Intelligence estimated to be: average Insight: fair Judgement: fair Impression Tolerating the cross titration and so will DC Effexor and increase Zoloft to 100 mg. If tolerated and progress continues, she would like to be discharged tomorrow, which seems reasonable. Plan (1) Major depressive disorder, recurrent severe without psychotic features 05/27 - Reduce Effexor to 150 mg today and 75 mg tomorrow. If no discontinuation symptoms will continue to taper - Start Zoloft 25 mg today increasing to 50 mg tomorrow - Family meeting with mother who is here from [place] - Every 15 minute checks for safety - Encourage participation in group and individual counseling - Assist the patient to learn and utilize healthy coping strategies - Encourage the patient to be out of bed during the day in order to establish good sleep hygiene - Obtain outpatient records from and coordinate future care with outpatient providers 05/28 - Continue venlafaxine XR taper, can decrease further in 2 days if tolerating well. - Continue sertraline which was increased to 50 mg today, and will increase again to 75 mg in 2 days as she is tolerating it well thus far. - Coordinate with [facility] and schedule follow-up appointments with her psychiatrist and therapist. - Continue participation in groups and therapy, and encouraged the patient to stay out of bed and active during the day to combat fatigue. - Encourage good by mouth intake 05/29 - DC Effexor - Increase zoloft to 100 mg. daily (2) JOANA (generalized anxiety disorder) 05/27 - - Meds as above - Will use Vistaril when necessary for anxiety - Assist the patient to explore concepts of mindfulness, deep breathing and relaxation Discharge / Aftercare Planning Primary Care Physician: Name: Dr Aguilar Psychiatrist: Name: Lexus SALAZAR Therapist: Name: Sultan Noe DEJESUS Date of Appointment: May 28, 2017 Car Rental Service Attendant: Name: None Visit Code E&M Code: 22689 Inventory Assets Strengths: Intelligence, willingness to engage in treatment Needs: To avoid substances Risk Factors Assessment : Yes /single/: Yes Higher / Fall in social status: No Health problems: No Mental Health Diagnoses: Yes Substance use disorders: No Previous attempt: No Previous psychiatric stay: No Hopelessness: No Smoker: No Protective Factors Assessment : No Responsible for young children: No Employed: No Stable relationships: Yes Supportive family: Yes Good rapport with provider: Yes Data Vital Signs Last 24 Hrs: Date Time Temp Pulse Resp B/P (MAP) Pulse Ox O2 Delivery O2 Flow Rate FiO2 05/29/17 06:48 36.7 80 16 97/65 98 Meds Administered Last 24 Hrs: Meds Administered (Past 24Hrs) Medications (Trade) Dose Ordered Sig/Merline Route Start Time Stop Time Status Last Admin Dose Admin Venlafaxine HCl (effeXOR EXTENDED REL CAP) 75 mg QAM PO 05/28/17 09:00 06/27/17 08:59 05/29/17 10:06 75 MG Sertraline HCl (Zoloft Tab) 50 mg QAM PO 05/28/17 09:00 05/28/17 12:01 DC 05/28/17 09:43 50 MG Sertraline HCl (Zoloft Tab) 25 mg 1330 ONCE PO 05/27/17 13:30 05/27/17 13:46 DC 05/27/17 14:26 25 MG Venlafaxine HCl (effeXOR EXTENDED REL CAP) 112.5 mg 1330 ONCE PO 05/27/17 13:30 05/27/17 13:31 DC 05/27/17 14:26 112.5 MG Sertraline HCl (Zoloft Tab) 50 mg Taper QAM PO 05/29/17 09:00 06/28/17 08:59 05/29/17 10:06 50 MG Lab Results Last 24 Hrs: Test 05/26/17 23:00 Urine Opiates Screen NEG (NEG) Urine Methadone, Qualitative NEG (NEG) Urine Barbiturates NEG (NEG) Urine Phencyclidine (PCP) Level NEG (NEG) Ur Amphetamine/Methamphetamine NEG (NEG) MDMA (Ecstasy) Screen NEG (NEG) Urine Benzodiazepines Screen NEG (NEG) Urine Cocaine Metabolite NEG (NEG) Urine Marijuana (THC) POS (NEG)
[2017-05-30 07:09] VITALS: BP_SYST 101; BP_SYST 118; BP_DIAS 68; BP_DIAS 80; PULSE 82; PULSE 96; TEMP 36.6
[2017-05-30] MEDS ORDERED: SERTRALINE HCL 100 MG TAB PO SCH (09:00)
--- NOTE | 2017-05-30 12:13 | Discharge Instructions ---
Discharge Information Report Includes Report will include the: Discharge Instructions & Summary Admission Admission Date / Time: May 27, 2017 at 02:30 Reason for Admission: Loss Of Daily Functioning, Decr. Appetite, Incr. S Discharge Discharge Diagnosis / Problem: Major depressive disorder Condition at Discharge: Good Discharge Goals Goal(s): Improve function Activity Recommendations Activity Limitations: resume your previous activity . Instructions / Follow-Up Instructions / Follow-Up . SPECIAL CARE INSTRUCTIONS: 1. Follow through with your scheduled aftercare appointments. If unable to keep an appointment, please call to reschedule. 2. Take your medication only as prescribed. Medication should not be changed or stopped without the approval of your doctor. In the event of worsening symptoms or concerns about side effects, contact your doctor immediately. 3. Utilize new healthy coping skills, anger management skills, and stress management skills learned during your hospitalization. Journal feelings and process them with a support person. Identify stressors or situations that may result in relapse, deterioration or inappropriate behaviors and develop a plan to deal with those issues. 4. If your coping skills are ineffective and you are in crisis, contact your outpatient providers for direction. If unable to reach your providers, please call the CAN HELP LINE AT or go to the closest Emergency Room. 5. Avoid alcohol and un-prescribed drugs. 6. You have been provided with the Mental Health Advance Directives Pamphlet for your review. AFTERCARE APPOINTMENTS: * Please call your insurance company prior to your scheduled appointment to confirm your aftercare providers are covered. Take your insurance information to your appointments. . Discharge / Aftercare Planning Primary Care Physician: Name: Dr Aguilar Appointment Notes: As needed Psychiatrist: Name: Dr. Lalitha [facility] Date of Appointment: Jun 02, 2017 Time of Appointment: 1pm Therapist: Name Of Therapist: Sultan Magruder. DEJESUS, [facility] Date of Appointment: Jun 04, 2017 Time of Appointment: 1pm Digital Advertising Specialist: Name: None Other: Name of Appointment #1: Angie Persaud, [facility], [address] [place] [address] Date of Appointment #1: Jun 02, 2017 Time of Appointment #1: 11am . Follow-Up Care Plan for Follow-Up Care: Follow up with Dr. Doty at [facility] on 06/02/17 at 1pm and Angie Persaud at [facility] on 06/02/17 at 11am and Sultan Steward at [facility] on 09/19 at 1:00pm. Current Hospital Diet Patient's current hospital diet: Gluten Free Diet Discharge Diet Recommended Diet: Gluten Free Diet Procedures Procedures Performed: No Pending Studies Pending Studies at Discharge: No Medical Emergencies . Who to Call and When: Medical Emergencies: For questions or emergencies related to your hospital stay, please contact the Inpatient Behavioral Health Unit at [phone]. A pre billing clinician is on-call 23/02 for the Behavioral Health Unit for emergencies At any time you feel your situation is an emergency, you may also call 911 immediately. . Non-Emergent Contact Non-Emergency issues call your: Psychiatrist Advance Directives Do You Have an Existing Mental: No Existing Living Will: No Existing Power of Harness Mender: No Advance Directives Info Given: To Pt/S.O. Advance Directives Reason: Declines as Mental Health Visit. Discharge Summary Admission HPI Per the Admitting provider: The patient is a 21-year-old woman attending [employer]. She reports that she has been depressed since the age of 13 or 14 and has also had chronic anxiety. She remembers sitting in her room listening to music and crying as a child. She was diagnosed with depression until she saw Lexus Antoine at [facility] in December of this year. She was started on Remeron which made her hungry and so this was discontinued in favor of a trial of Lexapro. She experienced an increase in suicidal ideation and so this was discontinued in favor of a trial of Effexor which has been increasing in dose since March. When she got to about 150 mg she noticed that she was extremely tired and this is continued. She is now sleeping any time she is not in class including 11-12 hours at night. It is interfering with her ability to participate in her schooling and her extracurricular activities. She denies having acute suicidal ideation but over the years has had passive thoughts of when she has been under stress. She is currently a [employer] major and is also participating in [employer]. She also has one class that involves setting up a community activity and hers is planned to be executed next week. All of this has placed an additional level of stress on her. Over the last 3 weeks her depression and anxiety have been worsening although she has not been able to see her providers having had to cancel twice. Today the patient continues to say that her mood is depressed and anxious. She denies acute suicidal ideation. She indicates her focus and concentration are okay but finds it tiring by the end of the day to focus on her schoolwork. As I said she sleeps to excess. Her appetite is been down and has been having some nausea. She is an anxious person dating back at least to high school. She reports racing anxious thoughts with panic attacks that include symptoms of shortness of breath and occur when she is in crowds. She generally avoids parties or anywhere that there are large numbers of people. This has only been this semester and in the setting of her depression. She denies clear OCD symptoms although does have some traits in which she cleans a lot anxious and has to have her bed clothes and sheets in a certain manner. She denies any symptoms that would be congruent with a bipolar disorder. Hospital Course (1) Major depressive disorder, recurrent severe without psychotic features 05/27 - Reduce Effexor to 150 mg today and 75 mg tomorrow. If no discontinuation symptoms will continue to taper - Start Zoloft 25 mg today increasing to 50 mg tomorrow - Family meeting with mother who is here from [place] - Every 15 minute checks for safety - Encourage participation in group and individual counseling - Assist the patient to learn and utilize healthy coping strategies - Encourage the patient to be out of bed during the day in order to establish good sleep hygiene - Obtain outpatient records from and coordinate future care with outpatient providers 05/28 - Continue venlafaxine XR taper, can decrease further in 2 days if tolerating well. - Continue sertraline which was increased to 50 mg today, and will increase again to 75 mg in 2 days as she is tolerating it well thus far. - Coordinate with [facility] and schedule follow-up appointments with her psychiatrist and therapist. - Continue participation in groups and therapy, and encouraged the patient to stay out of bed and active during the day to combat fatigue. - Encourage good by mouth intake 05/29 - DC Effexor - Increase zoloft to 100 mg. daily (2) JOANA (generalized anxiety disorder) 05/27 - - Meds as above - Will use Vistaril when necessary for anxiety - Assist the patient to explore concepts of mindfulness, deep breathing and relaxation Risk Factors Assessment : Yes /single/: Yes Higher / Fall in social status: No Health problems: No Mental Health Diagnoses: Yes Substance use disorders: No Previous attempt: No Previous psychiatric stay: No Hopelessness: No Smoker: No Protective Factors Assessment : No Responsible for young children: No Employed: No Stable relationships: Yes Supportive family: Yes Good rapport with provider: Yes Day of Discharge Assessment Mood significantly improved and significantly less depressed. Tolerating Zoloft well without any significant side effects. Denied any thoughts to harm self or others. Future oriented and looking forward to returning to University classes. Feels well supported by roommates and supportive friend visited yesterday which went well.Sleeping 8 hours per night and energy level good. Laboratory Refer to printed laboratory reports Test 05/26/17 23:00 Urine Opiates Screen NEG Urine Methadone, Qualitative NEG Urine Barbiturates NEG Urine Phencyclidine (PCP) Level NEG Ur Amphetamine/Methamphetamine NEG MDMA (Ecstasy) Screen NEG Urine Benzodiazepines Screen NEG Urine Cocaine Metabolite NEG Urine Marijuana (THC) POS Urine Marijuana (THC Carboxy Acid) 142 Total Time Total Time Spent (min): Less than 30 minutes Total Time Included: examination of the patient, discharge planning, medication reconciliation Tobacco Cessation at Discharge Smoking Status: Never Smoker FDA approved Prescription: non-smoker
[2017-05-30] MEDS ORDERED: ZLF/100 PO (12:16)
[2017-05-30] MEDS ORDERED: DESTROY THIS MEDICATION ONE (13:22)
[2017-05-30] MEDS ORDERED: NURSING VERBAL MED ORDER ONE (13:45)
== END 2017-05-30 13:22 | disposition home or self-care (01) | DRG 885 ==
LOC: C.EDB 22:46 → C.MHU 05-27 02:30
PROVIDERS: ADMIT Psychiatry & Neurology Child & Adolescent Psychiatry; ATTEND Psychiatry & Neurology Psychiatry
DX: F33.2 Major depressive disorder, recurrent severe without psychotic features (principal); F41.1 Generalized anxiety disorder; F12.90 Cannabis use, unspecified, uncomplicated; Z79.3 Long term (current) use of hormonal contraceptives; Z79.899 Other long term (current) drug therapy; Z88.0 Allergy status to penicillin

== ENCOUNTER 2017-08-31 17:00 | Emergency (ER) | payer OTHER ==
[~2017-08-31] VITALS: Ht 162.6 cm; Wt 57.4 kg
[~2017-08-31 17:00] MED LIST changes: -EFF/375 PO; -VENL150C56 PO; +ZLF/100 PO
[2017-08-31 17:44] VITALS: Ht 162.6 cm; Wt 57.4 kg
--- NOTE | 2017-08-31 18:32 | DIAGNOSTIC IMAGING REPORT ---
R FOOT MIN 3 VIEWS ROUTINE CLINICAL HISTORY: Right foot pain COMPARISON: None. DISCUSSION: No acute fractures or dislocations are visualized. There are no erosive or destructive changes. There is no evidence for soft tissue swelling. IMPRESSION: No significant bony abnormalities. Electronically signed by: Rey Coyle M.D. 08/31/2017 6:31 PM Dictated Date/Time: 08/31/2017 6:30 PM
--- NOTE | 2017-08-31 18:33 | DIAGNOSTIC IMAGING REPORT ---
R ANKLE MIN 3 VIEWS ROUTINE CLINICAL HISTORY: Right ankle pain COMPARISON: None. DISCUSSION: No fractures or dislocations are visualized. There are no erosive or destructive changes. IMPRESSION: No significant bony abnormalities. Electronically signed by: Rey Coyle M.D. 08/31/2017 6:32 PM Dictated Date/Time: 08/31/2017 6:31 PM
[2017-08-31 19:17] VITALS: BP 128/75; PULSE 85; TEMP 36.9; O2SAT 98
--- NOTE | 2017-09-01 23:43 | EMERGENCY ROOM VISIT NOTE ---
ED Visit Note First contact with patient: 17:47 CHIEF COMPLAINT: Right ankle and pain. HISTORY OF PRESENT ILLNESS: Ms Rowe is a 22-year old white female who ambulates into the ED accompanied by female friend complaining of right total ankle and right lateral foot pain. She reports she has been having ongoing pain in that area after running approximately 7 days ago. She denies any specific injury at the time of her initial onset. Since that time the pain has been constant. She places her discomfort over the anterior and inferior aspects of the malleolus with pain extending down into the fourth and fifth metacarpals. She rates her current discomfort 7/10. Her pain worsens with weightbearing and ambulation. She has not identified any alleviating factors related to the pain. Associated with her pain she reports she feels like the area is swollen; I do not appreciate any swelling. She reports she has been using elevation and ice without relief of her discomfort. She denies any associated hip pain, knee pain, lower leg pain, previous significant injuries or surgeries to the ankle or foot, erythema of the foot, ankle/foot weakness/numbness/tingling. REVIEW OF SYSTEMS: As noted above in History of Present Illness. PAST MEDICAL HISTORY: Asthma, bronchitis. CURRENT MEDICATIONS: control, Klonopin and Sertraline. ALLERGIES TO MEDICATIONS: Penicillin and gluten. SOCIAL HISTORY: Patient is currently University student and feels safe in her home environment; she denies tobacco use and admits to alcohol use. PHYSICAL EXAM: Vital Signs: Date Time Temp Pulse Resp B/P (MAP) Pulse Ox O2 Delivery O2 Flow Rate FiO2 08/31/17 17:44 36.9 89 18 128/75 97 Room Air General: 22 year old female in mild distress due to pain, nontoxic-appearing, afebrile and hemodynamically stable. Neurological: Awake, alert, oriented to person place and time. Answering questions appropriately and following commands. Skin: Warm dry and pink. No soft tissue injuries. Right Lower Extremity: No gross adan deformities. No tenderness in the hip or knee. Tenderness over the anterior and inferior areas around the lateral malleolus without bony deformity, bony crepitus, swelling, and ecchymosis. Results of tenderness over the fourth and fifth metacarpal areas. I do not appreciate any bony deformity, only crepitus, swelling or ecchymosis. Throughout the foot the skin is pink and warm with brisk capillary refill. Able to distinguish light sensations through all dermatomes of the foot. ED COURSE: Patient is assessed as noted above. Right Ankle X-Rays: Was read by myself and the radiologist and shows no acute fractures or dislocations. Right Foot X-Rays: Was read by myself and the radiologist showing no acute fractures or dislocations. Patient was offered pain medication and refused. Patient is placed in a splint and is instructed on crutch use. Patient is educated about her condition and instructed on her treatment plan; she verbalizes understanding and agreement with the our plan. CLINICAL IMPRESSION: Right ankle and foot pain. DISPOSITION: Patient is discharged to home in stable condition accompanied by female friends; prior to departure she was reassessed and subjectively reported she was feeling slightly better and rated her discomfort 6/10. PLAN: Comfort measures were discussed with the pain including rest, ice, elevation, splint and crutch use and appropriate use of ibuprofen and acetaminophen. Patient was encouraged to follow-up with orthopedics if no better in 7-10 days. Patient was encouraged to return to the ED for worsening/uncontrolled pain, uncontrolled swelling, foot weakness/numbness/tingling or any new/concerning symptoms.
== END 2017-08-31 19:19 | disposition home or self-care (01) ==
LOC: C.EDB 17:02 → C.EDD 19:19
DX: M25.571 Pain in right ankle and joints of right foot (principal); M79.671 Pain in right foot; J45.909 Unspecified asthma, uncomplicated; Z79.3 Long term (current) use of hormonal contraceptives; Z79.899 Other long term (current) drug therapy